=== PATIENT | male | born 1955 | race Caucasian/White ===

== ENCOUNTER → 2016-06-20 | Outpatient (REF) | payer OTHER | LOC: M LAB REF 17:06 | PROVIDERS: ATTEND Internal Medicine | DX: N20.0 Calculus of kidney (principal) ==

== ENCOUNTER → 2020-06-24 | Outpatient (CLI) | payer MEDICARE, OTHER ==
[2020-06-24 11:16] LABS: CREATININE FOR GFR 1.45 MG/DL (0.70-1.30); GLOMERULAR FILTRATION RATE 51.8 (>49)
== END ==
LOC: M LAB 10:33
PROVIDERS: ATTEND Otolaryngology
DX: H90.3 Sensorineural hearing loss, bilateral (principal)

== ENCOUNTER → 2020-06-24 | Outpatient (CLI) | payer MEDICARE, OTHER ==
--- NOTE | 2020-06-24 17:34 | REPVR ---
PROCEDURE INFORMATION: Exam: MR Head Without and With Contrast; Internal Auditory Canals Exam date and time: 06/24/2020 4:26 PM Age: 65 years old Clinical indication: Other: Hearing loss, R/O retro chochlear pathology TECHNIQUE: Imaging protocol: MR of the head without and with intravenous contrast. Exam focused on the internal auditory canals. Contrast material: PROHANCE; Contrast volume: 10 ml; Contrast route: INTRAVENOUS (IV); COMPARISON: No relevant prior studies available. FINDINGS: Brain: No restricted diffusion to suggest acute cerebral infarction. No acute intracranial hemorrhage. No prior cerebral infarctions or evidence demyelinating plaques. A few scattered T2 and FLAIR hyperintensities are apparent which is a nonspecific finding. The 7th and 8th nerve complexes are symmetric. No mass is seen in the cerebellopontine sulci or internal auditory canals. There is no evidence of vascular impingement upon the 7th and 8th nerve complexes nor is there abnormal enhancement on the post gadolinium sequences. There is no abnormal contrast enhancement in the brain parenchyma or leptomeninges. Ventricles: The ventricles appear mildly enlarged, but not out of proportion to the degree of parenchymal volume loss. Mastoid air cells: No effusions. Other vasculature: The horizontal canal segments of the internal carotid arteries appear normal. Bones/joints: Unremarkable. IMPRESSION: No retrocochlear pathology is identified to explain the patient's hearing. Electronically signed by: Ara Euceda On 06/24/2020 17:33:56 PM
== END ==
LOC: M PLARAD 14:36
PROVIDERS: ATTEND Otolaryngology
DX: H90.3 Sensorineural hearing loss, bilateral (principal)

== ENCOUNTER → 2020-11-19 | Outpatient (REF) | payer MEDICARE, OTHER ==
[2020-11-19 12:17] LABS: APPEARANCE, URINE CLOUDY (CLEAR); BACTERIA, URINE AUTO NEGATIVE (NEGATIVE); BILIRUBIN, URINE AUTO NEGATIVE (NEGATIVE); BLOOD, URINE BLOOD 2+ (NEGATIVE); CALCIUM OXALATE CRYSTALS SMALL; COLOR, URINE YELLOW (YELLOW); GLUCOSE, URINE (UA) AUTO NEGATIVE (NEGATIVE); KETONE, URINE AUTO NEGATIVE (NEGATIVE); LEUKOCYTE ESTERASE, URINE AUTO NEGATIVE (NEGATIVE); MUCUS, URINE SMALL (NEGATIVE); NITRITE, URINE AUTO NEGATIVE (NEGATIVE); PROTEIN, URINE AUTO NEGATIVE (NEGATIVE); RBC, URINE AUTO 6 /HPF (0-3); SPECIFIC GRAVITY URINE AUTO 1.016 (1.002-1.035); SQUAMOUS EPITHELIAL CELL UR AU 0 /HPF (0-6); UROBILINOGEN, URINE AUTO 0.2 mg/dL (0.0-2.0); WBC, URINE AUTO 2 /HPF (0-3)
== END ==
LOC: M LAB REF 11:16
PROVIDERS: ATTEND Internal Medicine
DX: Z01.810 Encounter for preprocedural cardiovascular examination (principal); N20.2 Calculus of kidney with calculus of ureter

== ENCOUNTER → 2020-12-15 | Outpatient (REF) | payer MEDICARE, OTHER | LOC: M LAB REF 16:53 | PROVIDERS: ATTEND Internal Medicine Nephrology | DX: E83.42 Hypomagnesemia (principal) ==

== ENCOUNTER 2022-10-12 07:50 | Day surgery (SDC) | payer MEDICARE, OTHER ==
[~2022-10-12] VITALS: Ht 177.8 cm; Wt 114.8 kg
[~2022-10-12 07:50] MED LIST: AMLO1TAB25 PO; ATEN50TA2 PO; ATOR1TAB21 PO; LANTINJ4 SC; LOSA100T8 PO; METF750T36 PO; NS 1,000 ML IV ONE; POTA10808 PO; SPIR-10 PO; TRUL0.5I SC; propofoL 200 MG/20 ML VIAL As Ordered ONE
[2022-10-12] MEDS ORDERED: DEXTROSE 50% 50ML SYRINGE IV STA (08:14)
[2022-10-12] MEDS ORDERED: propofoL 200 MG/20 ML VIAL As Ordered ONE (09:02)
[2022-10-12 09:10] VITALS: TEMP 97.5
[2022-10-12 09:27] VITALS: BP 146/67; O2SAT 97
== END 2022-10-12 09:29 | disposition home or self-care (01) ==
LOC: M OPP 07:50
PROVIDERS: ATTEND Internal Medicine Gastroenterology
DX: Z12.11 Encounter for screening for malignant neoplasm of colon (principal); Z86.010 Personal history of colon polyps; D12.0 Benign neoplasm of cecum; K64.0 First degree hemorrhoids; K57.30 Diverticulosis of large intestine without perforation or abscess without bleeding; Z79.82 Long term (current) use of aspirin; Z79.84 Long term (current) use of oral hypoglycemic drugs; Z79.899 Other long term (current) drug therapy

== ENCOUNTER → 2024-06-12 | Outpatient (CLI) | payer MEDICARE, OTHER ==
[~2024-06-12] MED LIST changes: -NS 1,000 ML IV ONE; -POTA10808 PO; +POTA10809 PO; -propofoL 200 MG/20 ML VIAL As Ordered ONE
== END ==
LOC: M RAD 15:03
PROVIDERS: ATTEND Physician Assistant Medical
DX: N20.0 Calculus of kidney (principal)

== ENCOUNTER → 2025-03-07 | Outpatient (REF) | payer MEDICARE, OTHER ==
[2025-03-07 15:38] LABS: PTH INTACT 46.8 PG/ML (18.5-88.0)
== END ==
LOC: M LAB REF 14:42
PROVIDERS: ATTEND Internal Medicine
DX: N18.31 Chronic kidney disease, stage 3a (principal)

== ENCOUNTER → 2025-03-11 | Outpatient (REF) | payer MEDICARE, OTHER ==
[2025-03-11 20:38] LABS: CREATININE, URINE 102.0 MG/DL; MALB URINE SIEMENS 10.0 MG/L; MAU/CREAT RATIO 9.8 MCG/MG (0.0-30.0)
== END ==
LOC: M LAB REF 17:09
PROVIDERS: ATTEND Nurse Practitioner Family
DX: N18.31 Chronic kidney disease, stage 3a (principal); E11.22 Type 2 diabetes mellitus with diabetic chronic kidney disease